=== PATIENT | male | born 1970 | race Two or more races ===

== ENCOUNTER 2023-02-23 12:30 | Emergency (ER) | payer MEDICAID, OTHER ==
[~2023-02-23] VITALS: Ht 190.5 cm; Wt 148.0 kg
[2023-02-23 12:50] VITALS: BP 163/106; PULSE 101; RESP 18; O2SAT 94
== END 2023-02-23 22:32 | disposition left against medical advice (07) ==
LOC: EDBD 12:30 → ER 12:30
DX: R42 Dizziness and giddiness (principal); I10 Essential (primary) hypertension; Z53.21 Procedure and treatment not carried out due to patient leaving prior to being seen by health care provider
CPT/HCPCS: 70450